=== PATIENT | female | born 1990 | race Caucasian/White ===

== ENCOUNTER 2020-09-30 10:55 | Inpatient (IN) ==
[2020-09-30] MEDS ORDERED: LACTATED RINGER'S 1,000 ML IV PRN (23:10)
[2020-09-30] MEDS ORDERED: OXYTOCIN 30 UNITS/500 ML BAG IV PRN ×2 (23:10→23:43)
[2020-09-30] MEDS ORDERED: OXYTOCIN 30 UNITS/500ML NSS ONE (23:30)
[2020-09-30 23:35] LABS: Hematocrit (blood only) 26.9 % (37-47); Hemoglobin 8.5 g/dL (12.0-16.0); Mean Corpuscular Hemoglobin 24.6 pg (25-34); Mean Platelet Volume 10.3 fL (7.4-10.4); Platelet Count 232 K/uL (130-400); RDW Coefficient of Variation 14.5 % (11.5-14.5); RDW Standard Deviation 41.6 fL (36.4-46.3); Red Blood Count 3.45 M/uL (4.2-5.4); White Blood Count 19.28 K/uL (4.8-10.8)
[2020-09-30] MEDS ORDERED: BENZOCAINE 20% AER SPR 82.5 GM CAN EXT PRN (23:43)
[2020-09-30] MEDS ORDERED: oxyCODONE/ACETAMINOPHEN 5mg/325mg TAB PO PRN (23:43)
[2020-09-30] MEDS ORDERED: bisacodyL 10 MG SUPP PR PRN (23:43)
[2020-09-30] MEDS ORDERED: HYDROCORTISONE ACETATE 25 MG SUPP PR PRN (23:43)
[2020-09-30] MEDS ORDERED: DIPHTHERIA/TETANUS/PERTUSSIS 0.5 ML SYR/VIAL IM ONE (23:43)
[2020-09-30] MEDS ORDERED: SUPERCREAM 0.870% 15 GM JAR EXT PRN (23:43)
[2020-09-30 23:54] LABS: Mean Corpuscular Hgb Conc 31.6 g/dL (32-36)
--- NOTE | 2020-10-01 | Delivery Summary ---
Vaginal Delivery Summary Date of Service Patient is a 30-year-old 5 para 3-0-1-2 EDC 09/30/2020 who presented in active labor with meconium stained fluid. She was 8 cm upon arrival in labor & delivery. She rapidly progressed to full dilation and pushed effectively over intact perineum for delivery of a viable female infant. Mouth and nasopharynx were suctioned on the perineum. Moderate meconium staining of the fluid was noted. The rest of the infant was delivered easily and placed on the mother's abdomen for further attention and drying. The was vigorous and crying upon delivery. The cord was then clamped and cut after approximately 1 minute. The placenta was expressed intact with a three-vessel cord. Cord blood was obtained. bleeding was controlled with dilute Pitocin. The perineum was inspected and noted to be intact. Estimated blood loss 150 cc. Mother and infant were doing well after delivery. [facility] [place] Vaginal Delivery Charge Vaginal Delivery Codes: 46740 global code for the antepartum, delivery, and post-
[2020-10-01] MEDS: IBUPROFEN 600 MG TAB PO PRN ×5 (01:40→20:33)
[2020-10-01 06:13] LABS: Hematocrit (blood only) 25.7 % (37-47); Mean Corpuscular Hemoglobin 24.4 pg (25-34); Mean Corpuscular Hgb Conc 31.1 g/dL (32-36); Mean Corpuscular Volume 78.4 fL (80-100); Mean Platelet Volume 10.4 fL (7.4-10.4); Platelet Count 273 K/uL (130-400); RDW Coefficient of Variation 14.5 % (11.5-14.5); RDW Standard Deviation 41.5 fL (36.4-46.3); Red Blood Count 3.28 M/uL (4.2-5.4); White Blood Count 20.74 K/uL (4.8-10.8)
--- NOTE | 2020-10-01 08:20 | Obstetrical Progress Note ---
Date of Service October 01, 2020 Assessment & Plan (1) Encounter for care and examination after delivery: satisfactory exam continue current care plan Day #:: 1 Subjective Ambulation: ambulating normally Voiding: no voiding problems Passing Gas:: Yes Diet Tolerance:: regular diet Lochia:: Small Feeding Type:: breast feeding supplementing with formula Physical Exam Constitutional WD/WN, vitals as above Cardiovascular Extremities: no calf tenderness Psychiatric A+Ox3, euthymic affect Genitourinary OB Exam Abdomen: + fundal height Fundus: + firm and + relation to umbilicus (2 below) Results & Data ([facility]) Vital Signs (Past 12 Hours) Vital Signs Temp Pulse Resp BP 10/01/20 02:30 98.1 F 96 H 18 132/67 10/01/20 02:22 115 H 135/72 10/01/20 01:28 76 139/73 10/01/20 01:13 81 143/81 H 10/01/20 00:58 74 142/80 H 10/01/20 00:43 77 140/80 10/01/20 00:28 77 133/77 10/01/20 00:13 73 132/78 09/30/20 23:58 81 127/62 09/30/20 23:44 83 145/58 H 09/30/20 23:32 93 H 117/54 L 09/30/20 23:15 87 132/92 09/30/20 23:05 98.2 F 24 09/30/20 23:00 98.2 F 22
[2020-10-01] MEDS: DOCUSATE SODIUM 100 MG CAP PO SCH ×2 (08:22→20:33)
[2020-10-01] MEDS: PRENATAL VITAMIN 1 TAB PO SCH (08:22)
[2020-10-01] MEDS: FERROUS SULFATE 325 MG TAB PO SCH (08:22)
[2020-10-01] MEDS: ACETAMINOPHEN 325 MG TAB PO PRN ×2 (10:19→22:37)
[2020-10-01] MEDS ORDERED: bisacodyL 5 MG TABEC PO SCH (20:00)
[2020-10-02] MEDS: IBUPROFEN 600 MG TAB PO PRN ×3 (00:10→10:47)
--- NOTE | 2020-10-02 06:47 | Obstetrical Progress Note ---
Date of Service October 02, 2020 Assessment & Plan (1) Encounter for care and examination after delivery: - doing well - desires d/c - instructions given - f/u in 6 weeks Subjective Ambulation: ambulating normally Voiding: no voiding problems Diet Tolerance:: regular diet Physical Exam Constitutional WD/WN, vitals as above Gastrointestinal (Abdomen) Fundus firm below umbilicus Musculoskeletal No deep calf tenderness Results & Data ([facility]) Vital Signs (Past 12 Hours) Vital Signs Temp Pulse Pulse Resp BP Pulse Ox 10/01/20 23:55 97.9 F 80 18 115/70 10/01/20 20:00 97.3 F L 76 16 112/68 98
[2020-10-02 07:11] LABS: Hematocrit (blood only) 25.9 % (37-47); Hemoglobin 8.1 g/dL (12.0-16.0)
[2020-10-02] MEDS: FERROUS SULFATE 325 MG TAB PO SCH (07:34)
[2020-10-02] MEDS: PRENATAL VITAMIN 1 TAB PO SCH (07:34)
[2020-10-02] MEDS: DOCUSATE SODIUM 100 MG CAP PO SCH (07:34)
== END 2020-10-02 11:10 | disposition home or self-care (01) | DRG 807 ==
LOC: OPB 10:55 → 4S1 10:55 → 4S2 10-01 02:52

== ENCOUNTER 2021-05-26 22:05 | Observation (INO) ==
[2021-05-27] MEDS ORDERED: ONDANSETRON INJ 2 MG/ML 2 ML VIAL IV STA (03:07)
[2021-05-27] MEDS ORDERED: SODIUM CHLORIDE 0.9% 1000ML 1,000 ML IV SCH (03:15)
[2021-05-27 03:28] LABS: Basophils # (auto) 0.01 K/uL (0-0.2); Basophils % (auto) 0.2 %; Hematocrit (blood only) 41.7 % (37-47); Hemoglobin 13.8 g/dL (12.0-16.0); Lymphocytes # (auto) 1.38 K/uL (1.2-3.4); Lymphocytes % (auto) 31.1 %; Mean Corpuscular Hemoglobin 26.4 pg (25-34); Mean Corpuscular Hgb Conc 33.1 g/dL (32-36); Mean Corpuscular Volume 79.9 fL (80-100); Mean Platelet Volume 10.9 fL (7.4-10.4); Monocytes # (auto) 0.33 K/uL (0.11-0.59); Monocytes % (auto) 7.4 %; Neutrophils # (auto) 2.32 K/uL (1.4-6.5); Neutrophils % (auto) 52.3 %; Platelet Count 254 K/uL (130-400); RDW Coefficient of Variation 13.5 % (11.5-14.5); RDW Standard Deviation 39.3 fL (36.4-46.3); Red Blood Count 5.22 M/uL (4.2-5.4); White Blood Count 4.44 K/uL (4.8-10.8)
[2021-05-27 03:45] LABS: Albumin Level 4.9 gm/dl (3.4-5.0); BUN Creatinine Ratio 20.9 (10-20); Calcium 9.6 mg/dl (8.5-10.1); Creatinine Clr Calc Pharmacy 101.4 ml/min; Est GFR (African American) 137.6 ml/min; Est GFR (Non-African American) 118.7 ml/min; Potassium 3.5 mmol/L (3.5-5.1)
[2021-05-27 03:48] LABS: Albumin Globulin Ratio 1.3 (0.9-2); Bilirubin,Total 0.8 mg/dl (0.2-1); Globulin 3.9 gm/dl (2.5-4.0); Total Protein 8.8 gm/dl (6.4-8.2)
[2021-05-27 03:50] LABS: Pregnancy Test, Serum Negative (Negative)
[2021-05-27] MEDS ORDERED: OPTIRAY 320 100ml IV ONE (05:47)
--- NOTE | 2021-05-27 06:19 | Emergency Department Note ---
History of Present Illness General Chief complaint: Constipation Stated complaint: CONSTIPATION Time Seen by Provider: 05/26/21 23:46 History of Present Illness Maximum Pain Intensity: 8 This is a 31-year-old female presenting to the emergency department for evaluation of constipation for the past 3 weeks. She states that she has not had a bowel movement of any type during this interval. The patient began having increasing left-sided abdominal pain worsening the past 1 to 2 days. The patient states that she drank magnesium citrate and attempted to fleets enemas at home without relief. She has not had fevers or chills. No chest pain, chest tightness, or shortness of breath. She feels like she is urinating as normal. She does not report any back pain or injury. The patient is on Suboxone. She rates her discomfort an 8/10, dull, nonradiating. Home Medications Medication Instructions Recorded Confirmed Type citalopram 20 mg tablet (Celexa) 20 mg PO QPM 05/09/21 05/26/21 History buprenorphine HCl 8 mg sublingual mg SUBLINGUAL 05/27/21 History tablet Allergies Allergy/AdvReac Type Severity Reaction Status Date / Time No Known Allergies Verified 05/26/21 23:52 Past Med/Surg History Medical History Anxiety and depression Surgical History H/O LEEP 2006 History of cholecystectomy 2007 History of tonsillectomy 1999 Family History Son Brain cancer Denies family history of Ovarian cancer Prostate cancer Myocardial infarction Breast cancer Colorectal cancer Social History Smoking Status: Never smoker Second Hand Exposure: Yes (FOB smokes); Hx Alcohol Use: Yes Hx Substance Use: Yes Preferred Language: Finnish Communication Ability: Effective Visual Impairment: No Limitations Hearing Ability: Normal Oven Attendant Required: No Beliefs That Will Affect Care: None marital status: Single marital status details: Marshall Mondragon 34 Current Living Situation: Family Current Living Situation Comment: CHILDREN current occupational status: unemployed Feels Safe at Home: Yes Physical Activity Frequency: 1-2 Times per Week Assistive Devices: None Review of Systems A total of 10 systems reviewed and were otherwise negative Physical Exam Vital Signs Vital Signs - 24 hr 05/26/21 22:06 05/27/21 00:34 05/27/21 02:30 Temperature 36.6 C Temperature Source Temporal Artery Scan Pulse Rate 96 H Pulse Rate [Finger] 83 79 Respiratory Rate 18 14 16 Respiratory Depth Normal Normal Blood Pressure 125/83 Blood Pressure [Right Arm] 121/76 112/77 Blood Pressure Mean 97 Blood Pressure Mean [Right Arm] 91 88 Blood Pressure Position Sitting Blood Pressure Position [Right Arm] Pulse Oximetry 100 98 100 Oxygen Delivery Method Room Air Room Air Room Air Sepsis Recent Fever Within 48 Hours No Sepsis New/Unexplained Change in Mental Status No Sepsis Action Taken by Nursing No Action Required 05/27/21 04:00 05/27/21 06:00 Temperature Temperature Source Pulse Rate Pulse Rate [Finger] 78 84 Respiratory Rate 16 16 Respiratory Depth Normal Blood Pressure Blood Pressure [Right Arm] 116/78 140/92 Blood Pressure Mean Blood Pressure Mean [Right Arm] 90 108 Blood Pressure Position Blood Pressure Position [Right Arm] Lying Sitting Pulse Oximetry 98 98 Oxygen Delivery Method Room Air Room Air Sepsis Recent Fever Within 48 Hours Sepsis New/Unexplained Change in Mental Status Sepsis Action Taken by Nursing VITALS: Vitals are noted on the nurse's note and reviewed by myself. Vital signs stable. GENERAL: Well-developed, well-nourished, white female, who is in no acute distress and resting comfortably. Patient is cooperative with the examination. HEAD: Normocephalic atraumatic. HEART: Regular rate and rhythm without murmurs gallops or rubs. LUNGS: Clear to auscultation bilaterally without wheezes, rales or rhonchi. No retractions or accessory muscle use. ABDOMEN: Positive normal bowel sounds x 4. Soft, nontender, without masses or organomegaly. No guarding or rebound tenderness. MUSCULOSKELETAL: No muscle atrophy, erythema, or edema noted. Full range of motion in all extremities. Course Administered Medications Citalopram Hydrobromide (Citalopram 20 Mg Tab) 20 mg PO QPM CHINEDU Stop: 06/26/21 20:59 Last Admin: 05/27/21 19:53 Dose: 20 mg Documented by: [id number] Enoxaparin Sodium (Enoxaparin Inj 40 Mg/0.4 Ml Syr) 40 mg SQ Q24H CHINEDU Stop: 06/26/21 10:59 Last Admin: 05/27/21 12:48 Dose: Not Given Documented by: [id number] Lactated Ringer's (Lr) 1,000 mls @ 80 mls/hr IV .[id number] CHINEDU Stop: 06/26/21 10:39 Last Infusion: 05/27/21 20:52 Dose: 80 mls/hr Documented by: [id number] Infusion: 05/27/21 19:53 Dose: 0 mls/hr Documented by: [id number] Infusion: 05/27/21 15:02 Dose: 80 mls/hr Documented by: [id number] Infusion: 05/27/21 11:28 Dose: 0 mls/hr Documented by: [id number] Admin: 05/27/21 11:28 Dose: 80 mls/hr Documented by: [id number] Ciprofloxacin (Cipro / D5w) 400 mg in 200 mls @ 100 mls/hr IV Q12H CHINEDU Stop: 06/06/21 10:59 Last Infusion: 05/27/21 14:57 Dose: 0 mls/hr Documented by: [id number] Admin: 05/27/21 12:46 Dose: 100 mls/hr Documented by: [id number] Metronidazole (Flagyl) 500 mg in 100 mls @ 100 mls/hr IV Q8H CHINEDU Stop: 06/06/21 10:59 Last Infusion: 05/27/21 20:52 Dose: 0 mls/hr Documented by: [id number] Admin: 05/27/21 19:52 Dose: 100 mls/hr Documented by: [id number] Infusion: 05/27/21 12:45 Dose: 0 mls/hr Documented by: [id number] Admin: 05/27/21 11:26 Dose: 100 mls/hr Documented by: [id number] Polyethylene Glycol (Polyethylene (Miralax) 17 Gm Pack) 17 gm PO Q4 CHINEDU Stop: 06/26/21 11:59 Last Admin: 05/27/21 12:49 Dose: Not Given Documented by: [id number] Polyethylene Glycol/Electrolytes (Lavage Solution 4000ml) 16 dose PO 1800 CHINEDU Stop: 05/28/21 08:00 Last Admin: 05/27/21 18:13 Dose: 16 dose Documented by: [id number] Discontinued Medications Sodium Chloride (Nss 1000ml) 1,000 mls @ 999 mls/hr IV .Q1H1M CHINEDU Stop: 05/27/21 04:15 Last Infusion: 05/27/21 06:56 Dose: 0 mls/hr Documented by: [id number] Admin: 05/27/21 03:48 Dose: 999 mls/hr Documented by: [id number] Ioversol (Optiray 320 100ml) 100 ml IV ONCE ONE Stop: 05/27/21 05:48 Last Admin: 05/27/21 05:48 Dose: 93 ml Documented by: [id number] Methylnaltrexone Goodman (Methylnaltrexone Goodman 12 Mg/0.6 Ml Vial) 12 mg SQ ONE STA Stop: 05/27/21 12:10 Last Admin: 05/27/21 12:54 Dose: 12 mg Documented by: [id number] Ondansetron HCl (Ondansetron Inj 2 Mg/Ml 2 Ml Vial) 4 mg IV NOW STA Stop: 05/27/21 03:08 Last Admin: 05/27/21 03:48 Dose: 4 mg Documented by: [id number] Polyethylene Glycol (Polyethylene (Miralax) 17 Gm Pack) 17 gm PO NOW STA Stop: 05/27/21 07:28 Last Admin: 05/27/21 09:28 Dose: 17 gm Documented by: [id number] Medical Decision Making Differential Diagnosis Differential diagnosis: Etiologies such as biliary colic, cholecystitis, hepatitis, pancreatitis, cardiac disease, pancreatitis, gastritis, peptic ulcer disease, appendicitis, cystitis, diverticulitis, mesenteric ischemia, inflammatory bowel disease, ileus, bowel obstruction, testicular/adnexal torsion, aortic pathology, shingles, as well as others were considered Laboratory Data Result diagrams: 05/27/21 03:19 05/27/21 03:19 Lab Results 05/27/21 05/27/21 05/27/21 Range/Units 03:19 03:19 03:19 WBC 4.44 L (4.8-10.8) K/uL RBC 5.22 (4.2-5.4) M/uL Hgb 13.8 (12.0-16.0) g/dL Hct 41.7 (37-47) % MCV 79.9 L (80-100) fL MCH 26.4 (25-34) pg MCHC 33.1 (32-36) g/dL RDW Std Deviation 39.3 (36.4-46.3) fL RDW Coeff of Yonatan 13.5 (11.5-14.5) % Plt Count 254 (130-400) K/uL MPV 10.9 H (7.4-10.4) fL Immature Gran % (Auto) 0.0 % Neut % (Auto) 52.3 % Lymph % (Auto) 31.1 % [place] % (Auto) 7.4 % Eos % (Auto) 9.0 % Baso % (Auto) 0.2 % Neut # (Auto) 2.32 (1.4-6.5) K/uL Lymph # (Auto) 1.38 (1.2-3.4) K/uL [place] # (Auto) 0.33 (0.11-0.59) K/uL Eos # (Auto) 0.40 (0-0.5) K/uL Baso # (Auto) 0.01 (0-0.2) K/uL Immature Gran # (Auto) 0.00 (0.00-0.02) K/uL Sodium 137 (136-145) mmol/L Potassium 3.5 (3.5-5.1) mmol/L Chloride 102 (98-107) mmol/L Carbon Dioxide 34 H (21-32) mmol/L Anion Gap 1.0 L (3-11) BUN 13 (7-18) mg/dl Creatinine 0.63 (0.6-1.2) mg/dl Est Cr Clr Drug Dosing 101.4 ml/min Est GFR ( Amer) 137.6 ml/min Est GFR (Non-Af Amer) 118.7 ml/min BUN/Creatinine Ratio 20.9 H (10-20) Glucose 92 (70-99) mg/dl Calcium 9.6 (8.5-10.1) mg/dl Total Bilirubin 0.8 (0.2-1) mg/dl AST 234 H (15-37) U/L ALT 141 H (12-78) U/L Alkaline Phosphatase 112 (45-117) U/L Total Protein 8.8 H (6.4-8.2) gm/dl Albumin 4.9 (3.4-5.0) gm/dl Globulin 3.9 (2.5-4.0) gm/dl Albumin/Globulin Ratio 1.3 (0.9-2) HCG, Qual Negative (Negative) COVID-19 Eval Order SARS-CoV-2 (PCR) (Negative) 05/27/21 05/27/21 Range/Units 07:29 07:29 WBC (4.8-10.8) K/uL RBC (4.2-5.4) M/uL Hgb (12.0-16.0) g/dL Hct (37-47) % MCV (80-100) fL MCH (25-34) pg MCHC (32-36) g/dL RDW Std Deviation (36.4-46.3) fL RDW Coeff of Yonatan (11.5-14.5) % Plt Count (130-400) K/uL MPV (7.4-10.4) fL Immature Gran % (Auto) % Neut % (Auto) % Lymph % (Auto) % [place] % (Auto) % Eos % (Auto) % Baso % (Auto) % Neut # (Auto) (1.4-6.5) K/uL Lymph # (Auto) (1.2-3.4) K/uL [place] # (Auto) (0.11-0.59) K/uL Eos # (Auto) (0-0.5) K/uL Baso # (Auto) (0-0.2) K/uL Immature Gran # (Auto) (0.00-0.02) K/uL Sodium (136-145) mmol/L Potassium (3.5-5.1) mmol/L Chloride (98-107) mmol/L Carbon Dioxide (21-32) mmol/L Anion Gap (3-11) BUN (7-18) mg/dl Creatinine (0.6-1.2) mg/dl Est Cr Clr Drug Dosing ml/min Est GFR ( Amer) ml/min Est GFR (Non-Af Amer) ml/min BUN/Creatinine Ratio (10-20) Glucose (70-99) mg/dl Calcium (8.5-10.1) mg/dl Total Bilirubin (0.2-1) mg/dl AST (15-37) U/L ALT (12-78) U/L Alkaline Phosphatase (45-117) U/L Total Protein (6.4-8.2) gm/dl Albumin (3.4-5.0) gm/dl Globulin (2.5-4.0) gm/dl Albumin/Globulin Ratio (0.9-2) HCG, Qual (Negative) COVID-19 Eval Order Covid19 at [facility] SARS-CoV-2 (PCR) NEGATIVE (Negative) Imaging Data Radiologist's Impression: KUB X-Ray 05/26/21 23:55 KUB CLINICAL HISTORY: Constipation. FINDINGS: 2 AP supine abdominal radiographs are compared to study dated 11/23/2019. There is a nonobstructed abdominal bowel gas pattern. Moderate fecal retention is noted throughout the colon. No evidence of intraperitoneal free air is seen on these supine images. There are no abnormal abdominal calcifications. Cholecystectomy clips are seen in the right upper quadrant. A phlebolith is noted in the pelvis. The bony structures appear intact. The lung bases are clear as imaged. IMPRESSION: Moderate colonic fecal retention. Electronically signed by: Naveen Cevallos M.D. 05/27/2021 8:15 AM KUB X-Ray 05/27/21 02:53 KUB CLINICAL HISTORY: Constipation. Status post enema. FINDINGS: 2 AP supine abdominal radiographs are compared to study performed earlier the same day 05/27/2021. There is a nonobstructed abdominal bowel gas pattern. There is moderate colonic fecal retention, greatest involving the left colon. There is mild gaseous distention of the upstream colon. No evidence of intraperitoneal free air is seen on these supine images. There are no abnormal abdominal calcifications. Cholecystectomy clips are seen in the right upper quadrant. A phlebolith is noted in the pelvis. The bony structures appear intact. The lung bases are clear as imaged. IMPRESSION: Moderate colonic fecal retention. No significant change from today's earlier examination. Electronically signed by: Naveen Cevallos M.D. 05/27/2021 8:16 AM Abdomen/Pelvis CT 05/27/21 03:07 CT SCAN OF THE ABDOMEN AND PELVIS WITH IV CONTRAST CLINICAL HISTORY: Generalized abdominal pain. Constipation. COMPARISON STUDY: Abdominal radiographs dated 05/27/2021. TECHNIQUE: Following the IV administration of 93 cc of Optiray 320, CT scan of the abdomen and pelvis is performed from the lung bases to the proximal femora. Images are reviewed in the axial, sagittal, and coronal planes. IV contrast was administered without complication. Oral contrast was utilized. A dose lowering technique was utilized adhering to the principles of ALARA. CT DOSE: 268.24 mGy.cm FINDINGS: Lung bases: The heart is normal in size and without pericardial effusion. The lung bases are clear. Liver: The contrast-enhanced liver is normal in size, contour, and attenuation. There is mild central intrahepatic biliary ductal dilatation. The hepatic veins and portal veins are patent. Mild periportal edema is noted. Gallbladder: Surgically absent noting clips in the gallbladder fossa. Spleen: Normal in size and attenuation. Pancreas: Unremarkable. Adrenal glands: Unremarkable. Kidneys: The contrast enhanced kidneys are normal in size and without hydronephrosis. The kidneys enhance symmetrically. Abdominal vasculature: The abdominal aorta is normal in course and caliber. Bowel: There is severe constipation, greatest involving the descending colon which is distended with stool and measures up to 6 cm in diameter. There is wall thickening and edema with mucosal hyperemia seen involving the left colon with associated pericolonic inflammation and fluid. The rectosigmoid is relatively decompressed. The small bowel loops are normal in caliber. Enteric contrast reaches the distal small bowel. The appendix is not clearly visualized. Peritoneum: There is a small volume of free fluid in the pelvis. No intraperitoneal free air is identified. There is a small fat-containing umbilical hernia. Lymphadenopathy: None. Pelvic viscera: The bladder, uterus, and adnexa are normal as visualized. Skeletal structures: No lytic or blastic lesions are seen. IMPRESSION: 1. Severe constipation. 2. There is evidence of a nonspecific colitis as detailed above, greatest involving the left colon. This may represent stercoral colitis and clinical correlation will be essential. 3. The rectosigmoid colon is relatively decompressed. Stricture or obstructing mass lesion is considered unlikely in this age group. If clinically warranted, colonoscopy could be considered for further assessment of the underlying colon. 4. A small volume of free fluid is likely reactive. ACT 112: Negative or not required by law. Electronically signed by: Naveen Cevallos M.D. 05/27/2021 7:11 AM MDM Narrative Physical exam and history were performed. Nursing notes, EMR, and Medication List were personally reviewed. Patient appears to have constipation symptoms by history. She does not appear significantly distended on examination. She is on outpatient opioids which may be contributing to her symptoms. KUB was performed and reviewed by myself and radiology showing constipation. I discussed options of care with the patient a nd she is willing to undergo enema. Milk and molasses enema was performed by nursing without significant results. We did attempt a second enema with soapsuds, and this also did not produce results. I did repeat KUB which does not show any significant change in the patient's stool burden. Because of this IV access was established and labs were obtained. She was sent to CT scan with IV and oral contrast. The patient's blood work is as above and was reviewed. She does not have a significantly elevated white blood cell count, gross anemia, bandemia, or significant electrolyte imbalance. Transaminases are slightly elevated of unknown etiology. CT scan was reviewed and does show severe constipation as well as concern for stercoral colitis. The case was discussed with the on-call legislative advocate, Dr. Michael, who recommended starting MiraLAX and admitting the patient. I did speak with him out any hospitalist team who agreed to evaluate the patient here in the ER. Please see their dictation for further patient course, plan, disposition. The chart was completed utilizing [employer] Speech Voice Recognition Software. Grammatical errors, random word insertions, pronoun errors, and incomplete sentences are an occasional consequence of this system due to software limitations, ambient noise, and hardware issues. Any formal questions or concerns about the content, text, or information contained within the body of this dictation should be directly addressed to the provider for clarification. . Impression & Plan Stercoral colitis, Constipation, Abnormal CT scan, colon Discharge Plan Visit Data Chief Complaint: Constipation Stated Complaint: CONSTIPATION ED Provider: Cecilio Madrid ED Midlevel Provider: Shane Benjamin Discharge Problem: Stercoral colitis, Constipation, Abnormal CT scan, colon Patient Disposition: Admitted As Inpatient Discharge Instructions Interventions: ED Discharge Assessment Last Done: 05/27/21 09:45
--- NOTE | 2021-05-27 07:12 | CT Scan Report ---
CT SCAN OF THE ABDOMEN AND PELVIS WITH IV CONTRAST CLINICAL HISTORY: Generalized abdominal pain. Constipation. COMPARISON STUDY: Abdominal radiographs dated 05/27/2021. TECHNIQUE: Following the IV administration of 93 cc of Optiray 320, CT scan of the abdomen and pelvi s is performed from the lung bases to the proximal femora. Images are reviewed in the axial, sagittal , and coronal planes. IV contrast was administered without complication. Oral contrast was utilized. A dose lowering technique was utilized adhering to the principles of ALARA. CT DOSE: 268.24 mGy.cm FINDINGS: Lung bases: The heart is normal in size and without pericardial effusion. The lung bases are clear. Liver: The contrast-enhanced liver is normal in size, contour, and attenuation. There is mild central intrahepatic biliary ductal dilatation. The hepatic veins and portal veins are patent. Mild periport al edema is noted. Gallbladder: Surgically absent noting clips in the gallbladder fossa. Spleen: Normal in size and attenuation. Pancreas: Unremarkable. Adrenal glands: Unremarkable. Kidneys: The contrast enhanced kidneys are normal in size and without hydronephrosis. The kidneys enh ance symmetrically. Abdominal vasculature: The abdominal aorta is normal in course and caliber. Bowel: There is severe constipation, greatest involving the descending colon which is distended with stool and measures up to 6 cm in diameter. There is wall thickening and edema with mucosal hyperemia seen involving the left colon with associated pericolonic inflammation and fluid. The rectosigmoid is relatively decompressed. The small bowel loops are normal in caliber. Enteric contrast reaches the d istal small bowel. The appendix is not clearly visualized. Peritoneum: There is a small volume of free fluid in the pelvis. No intraperitoneal free air is ident ified. There is a small fat-containing umbilical hernia. Lymphadenopathy: None. Pelvic viscera: The bladder, uterus, and adnexa are normal as visualized. Skeletal structures: No lytic or blastic lesions are seen. IMPRESSION: 1. Severe constipation. 2. There is evidence of a nonspecific colitis as detailed above, greatest involving the left colon. T his may represent stercoral colitis and clinical correlation will be essential. 3. The rectosigmoid colon is relatively decompressed. Stricture or obstructing mass lesion is conside red unlikely in this age group. If clinically warranted, colonoscopy could be considered for further assessment of the underlying colon. 4. A small volume of free fluid is likely reactive. ACT 112: Negative or not required by law. Electronically signed by: Naveen Cevallos M.D. 05/27/2021 7:11 AM
[2021-05-27] MEDS ORDERED: POLYETHYLENE (MIRALAX) 17 GM PACK PO STA (07:27)
--- NOTE | 2021-05-27 08:16 | XRay Report ---
KUB CLINICAL HISTORY: Constipation. FINDINGS: 2 AP supine abdominal radiographs are compared to study dated 11/23/2019. There is a nonobst ructed abdominal bowel gas pattern. Moderate fecal retention is noted throughout the colon. No eviden ce of intraperitoneal free air is seen on these supine images. There are no abnormal abdominal calcif ications. Cholecystectomy clips are seen in the right upper quadrant. A phlebolith is noted in the pe lvis. The bony structures appear intact. The lung bases are clear as imaged. IMPRESSION: Moderate colonic fecal retention. Electronically signed by: Naveen Cevallos M.D. 05/27/2021 8:15 AM
--- NOTE | 2021-05-27 08:18 | XRay Report ---
KUB CLINICAL HISTORY: Constipation. Status post enema. FINDINGS: 2 AP supine abdominal radiographs are compared to study performed earlier the same day 05/27. There is a nonobstructed abdominal bowel gas pattern. There is moderate colonic fecal retentio n, greatest involving the left colon. There is mild gaseous distention of the upstream colon. No evid ence of intraperitoneal free air is seen on these supine images. There are no abnormal abdominal calc ifications. Cholecystectomy clips are seen in the right upper quadrant. A phlebolith is noted in the pelvis. The bony structures appear intact. The lung bases are clear as imaged. IMPRESSION: Moderate colonic fecal retention. No significant change from today's earlier examination. Electronically signed by: Naveen Cevallos M.D. 05/27/2021 8:16 AM
--- NOTE | 2021-05-27 09:21 | History & Physical Report ---
Date of Service May 27, 2021 Assessment & Plan (1) Constipation: Plan: 3 weeks since last BM left sided abdominal pain, nausea vomiting CT a/p shows severe constipation no response to milk molasses enema and soap suds enema start Miralax 17gm q4 until she moves bowels regular diet consult GI for recommendations, may need outpatient colonoscopy once acute issue resolved hold Suboxone in setting of constipation (2) Stercoral colitis: Plan: cipro/flagyl IV IV fluids no fever, WBC normal, monitor closely History of Present Illness Chief Complaint: I have not moved my bowels in 3 weeks Primary Care Provider: FLORES Portillo 31 yo female who is typically healthy, takes Celexa and Suboxone, presents with 3 weeks of constipation. She typically is regular, her bowels are not hard or difficult to pass. She did not think much of it but when she could not move her bowels this week she got worried. She developed some left sided abdominal pain, nausea and vomiting the past few days. Poor appetite. Does not feel too bloated. She can hear her bowels "rumbling." No other issues, no fever, no chest pain, no cough, no dyspnea, no rash. In the ED they tried milk and molassess enema and soap suds enema with no significant results, passed a little bit of liquid. CT abd/pelvis with significant constipation and stercoral colitis possible, could not rule out a stricture but would need colonoscopy once stool passed. Gave her Miralax in the ED. Allergies Allergy/AdvReac Type Severity Reaction Status Date / Time No Known Allergies Verified 05/26/21 23:52 Home Medications Medication Instructions Recorded Confirmed Type citalopram 20 mg tablet (Celexa) 20 mg PO QPM 05/09/21 05/26/21 History Past Med/Surg History Medical History Anxiety and depression Surgical History H/O LEEP 2006 History of cholecystectomy 2007 History of tonsillectomy 1999 Family History Son Brain cancer Denies family history of Ovarian cancer Prostate cancer Myocardial infarction Breast cancer Colorectal cancer Social History Smoking Status: Never smoker Second Hand Exposure: Yes (FOB smokes); Hx Alcohol Use: Yes Hx Substance Use: No Preferred Language: Korean Communication Ability: Effective Visual Impairment: No Limitations Hearing Ability: Normal Water Restoration Technician Required: No Beliefs That Will Affect Care: None marital status: Single marital status details: Marshall Mondragon 35 Current Living Situation: Family Current Living Situation Comment: CHILDREN current occupational status: unemployed Feels Safe at Home: Yes Physical Activity Frequency: 1-2 Times per Week Assistive Devices: None Review of Systems Review of Systems: All systems reviewed & are unremarkable except as noted in HPI & below Gastrointestinal: + abdominal pain (left sided), + early satiety, + nausea, + vomiting, + change in bowel habits (constipated x 3 weeks) and + constipation; no diarrhea/loose stools Physical Exam Constitutional: WD/WN, vitals as above no acute distress Eyes: PERRL, conjunctivae normal, anicteric sclerae ENMT: external ear and nose normal, oropharynx normal Neck: trachea midline, no thyromegaly Respiratory: normal respiratory effort, lungs clear to auscultation Cardiovascular: RRR, no murmur, no edema Gastrointestinal (Abdomen): Inspection/Auscultation: abdomen normal to inspection and normal bowel sounds; abdomen not distended Percussion/Palpation: + abdomen tender (left side), abdomen soft and + dullness to percussion (left sided) Musculoskeletal: no cyanosis or clubbing, extremities motor strength 5/5 Skin: no rashes, warm and dry Neurologic: patellar DTR's 2+ bilat, sensation intact and PERRL, EOMI, accommodation nl, no face palsy, no dysarthria Psychiatric: A+Ox3, euthymic affect Lymphatic: no cervical or axillary lymphadenopathy Results & Data Results & Data ([facility]) Vital Signs (Past 12 Hours) Vital Signs Temp Pulse Pulse Resp BP BP Pulse Ox 05/27/21 08:00 87 18 138/90 98 05/27/21 06:00 84 16 140/92 98 05/27/21 04:00 78 16 116/78 98 05/27/21 02:30 79 16 112/77 100 05/27/21 00:34 83 14 121/76 98 05/26/21 22:06 36.6 C 96 H 18 125/83 100 Laboratory Results Laboratory Results - last 24 hr 05/27/21 05/27/21 05/27/21 03:19 03:19 03:19 WBC 4.44 L RBC 5.22 Hgb 13.8 Hct 41.7 MCV 79.9 L MCH 26.4 MCHC 33.1 RDW Std Deviation 39.3 RDW Coeff of Yonatan 13.5 Plt Count 254 MPV 10.9 H Immature Gran % (Auto) 0.0 Neut % (Auto) 52.3 Lymph % (Auto) 31.1 Freestone % (Auto) 7.4 Eos % (Auto) 9.0 Baso % (Auto) 0.2 Neut # (Auto) 2.32 Lymph # (Auto) 1.38 Freestone # (Auto) 0.33 Eos # (Auto) 0.40 Baso # (Auto) 0.01 Immature Gran # (Auto) 0.00 Sodium 137 Potassium 3.5 Chloride 102 Carbon Dioxide 34 H Anion Gap 1.0 L BUN 13 Creatinine 0.63 Est Cr Clr Drug Dosing 101.4 Est GFR ( Amer) 137.6 Est GFR (Non-Af Amer) 118.7 BUN/Creatinine Ratio 20.9 H Glucose 92 Calcium 9.6 Total Bilirubin 0.8 AST 234 H ALT 141 H Alkaline Phosphatase 112 Total Protein 8.8 H Albumin 4.9 Globulin 3.9 Albumin/Globulin Ratio 1.3 HCG, Qual Negative COVID-19 Eval Order SARS-CoV-2 (PCR) 05/27/21 05/27/21 07:29 07:29 WBC RBC Hgb Hct MCV MCH MCHC RDW Std Deviation RDW Coeff of Yonatan Plt Count MPV Immature Gran % (Auto) Neut % (Auto) Lymph % (Auto) Freestone % (Auto) Eos % (Auto) Baso % (Auto) Neut # (Auto) Lymph # (Auto) Freestone # (Auto) Eos # (Auto) Baso # (Auto) Immature Gran # (Auto) Sodium Potassium Chloride Carbon Dioxide Anion Gap BUN Creatinine Est Cr Clr Drug Dosing Est GFR ( Amer) Est GFR (Non-Af Amer) BUN/Creatinine Ratio Glucose Calcium Total Bilirubin AST ALT Alkaline Phosphatase Total Protein Albumin Globulin Albumin/Globulin Ratio HCG, Qual COVID-19 Eval [address] Covid[address] [facility] SARS-CoV-2 (PCR) NEGATIVE Diagnostic Findings CT abd/pelvis IMPRESSION: 1. Severe constipation. 2. There is evidence of a nonspecific colitis as detailed above, greatest involving the left colon. This may represent stercoral colitis and clinical correlation will be essential. 3. The rectosigmoid colon is relatively decompressed. Stricture or obstructing mass lesion is considered unlikely in this age group. If clinically warranted, colonoscopy could be considered for further assessment of the underlying colon. 4. A small volume of free fluid is likely reactive. Code Status & VTE Plan VTE Prophylaxis Plan VTE Prophylaxis will be ordered: Yes PG Care Time/CCT Total # of Minutes Spent Total Time Spent with Patient: Total time spent is greater than 50% in coordination of care (as documented) at patient's floor/unit and/or counseling patient: Coding Level of Care Code INT OBSERVATION CARE 50M LVL 2 Diagnoses Constipation K59.00 Stercoral colitis K52.89
[2021-05-27] MEDS ORDERED: ONDANSETRON INJ 2 MG/ML 2 ML VIAL IV PRN (10:40)
[2021-05-27] MEDS: metroNIDAZOLE 500 MG/100 ML BAG IV SCH ×2 (11:26→19:52)
[2021-05-27] MEDS: LACTATED RINGER'S 1,000 ML IV SCH (11:28)
[2021-05-27] MEDS ORDERED: METHYLNALTREXONE BROMIDE 12 MG/0.6 ML VIAL SQ STA (12:09)
--- NOTE | 2021-05-27 12:15 | Gastrointestinal Consultation ---
Date of Consultation May 27, 2021 Assessment & Plan (1) Constipation: (2) Stercoral colitis: (3) Abnormal CT scan, colon: DDX: infection vs stercoral colitis vs IBD vs opioid-induced constipation vs mass vs other. * Clear liquid diet. * 12 mg Relistor SQ x1 dose now. * GoLytely bowel preparation this evening. * NPO x meds post midnight. * Colonoscopy tomorrow 05/28/[address] Michael. * Continue supportive care. * Further reccs pending results of testing. Thank you for allowing us to participate in the care of this patient. If you have any questions or concerns, please do not hesitate to contact us. Supervising Physician Co-Signing Physician Notes Agree with FLORES Tello as above Abd: Soft, Tender LLQ, ND, +BS Continue current therapy and supportive care Clear liquid diet Bowel prep tonight Colonoscopy tomorrow History of Present Illness Reason for Consultation: Severe constipation Requesting Physician: Dr. Arroyo Attending Physician: Agapito Arroyo, History of Present Illness Patient is a very pleasant 31 y.o. female with a history of substance abuse on chronic Suboxone therapy admitted with a three week history of constipation and left-sided abdominal pain which began several days prior to arrival. She states that she typically has a very normal bowel pattern with regular bowel frequency and consistency. No precipitating events to the change in bowel habits. Over the past few weeks, she reports that she has been losing weight and unable to eat due to loss of appetite and nausea. No vomiting. +blood in stool although felt related to hemorrhoids. +Bloating. She endorses occasional NSAID use. Family history is significant for IBS but not inflammatory bowel disease or GI malignancy. Upon admission, she did undergo a CT scan which demonstrated severe constipation with colonic wall dilation measuring up to 6 cm. There were also nonspecific inflammatory changes in the descending colon suggestive of possible stercoral colitis and possible stricture vs mass, although felt less likely given age. GI has been consulted in this regard. She remains hemodynamically stable. She did have an unsuccessful milk/molasses enema in the ER and has consumed one dose of MiraLAX and 1 dose of magnesium citrate. She states she feels weak and dizzy but has not had any fecal output at this time. Allergies Allergy/AdvReac Type Severity Reaction Status Date / Time No Known Allergies Verified 05/26/21 23:52 Home Medications Medication Instructions Recorded Confirmed Type citalopram 20 mg tablet (Celexa) 20 mg PO QPM 05/09/21 05/26/21 History buprenorphine HCl 8 mg sublingual mg SUBLINGUAL 05/27/21 History tablet Patient History Medical History Anxiety and depression Surgical History H/O LEEP 2006 History of cholecystectomy 2007 History of tonsillectomy 1999 Family History Son Brain cancer Denies family history of Ovarian cancer Prostate cancer Myocardial infarction Breast cancer Colorectal cancer Social History Smoking Status: Never smoker Second Hand Exposure: Yes (FOB smokes); Hx Alcohol Use: Yes Hx Substance Use: Yes Preferred Language: Tajik Communication Ability: Effective Visual Impairment: No Limitations Hearing Ability: Normal Cutting Machine Fixer Required: No Beliefs That Will Affect Care: None marital status: Single marital status details: Marshall Mondragon 35 Current Living Situation: Family Current Living Situation Comment: CHILDREN current occupational status: unemployed Feels Safe at Home: Yes Physical Activity Frequency: 1-2 Times per Week Assistive Devices: None Review of Systems Review of Systems: A 13 point review of systems was negative other than pertinent positives and negatives as per the HPI. Physical Exam Constitutional: WD/WN, vitals as above Eyes: EOM intact bilaterally Neck: normal appearance Respiratory: normal respiratory effort, lungs clear to auscultation Cardiovascular: Rate/Rhythm: regular rate and regular rhythm Heart Sounds: no gallop and no murmur Gastrointestinal (Abdomen): Inspection/Auscultation: + abdomen distended and + hyperactive bowel sounds (LLQ, decreased RUQ and RLQ) Percussion/Palpation: + abdomen tender (LLQ) and abdomen soft; no guarding and abdomen not rigid Musculoskeletal: Extremities: no cyanosis no lower extremity edema Skin: no rashes, warm and dry Neurologic: moves all extremities Psychiatric: A+Ox3, euthymic affect Results & [facility] ([facility]) Vital Signs (Past 12 Hours) Vital Signs Temp Pulse Pulse Resp BP Pulse Ox 05/27/21 09:55 36.5 C 79 21 118/85 98 05/27/21 08:00 87 18 138/90 98 05/27/21 06:00 84 16 140/92 98 05/27/21 04:00 78 16 116/78 98 05/27/21 02:30 79 16 112/77 100 05/27/21 00:34 83 14 121/76 98 Laboratory Results Abnormal lab results 05/27/21 05/27/21 Range/Units 03:19 03:19 WBC 4.44 L (4.8-10.8) K/uL MCV 79.9 L (80-100) fL MPV 10.9 H (7.4-10.4) fL Carbon Dioxide 34 H (21-32) mmol/L Anion Gap 1.0 L (3-11) BUN/Creatinine Ratio 20.9 H (10-20) AST 234 H (15-37) U/L ALT 141 H (12-78) U/L Total Protein 8.8 H (6.4-8.2) gm/dl PG Care Time/CCT Total # of Minutes Spent Total Time Spent with Patient: Total time spent is greater than 50% in coordination of care (as documented) at patient's floor/unit and/or counseling patient: Coding Level of Care Code 64618 Initial Inpt Care Lvl 3 Diagnoses Constipation K59.00 Stercoral colitis K52.[address] scan, colon R93.3
[2021-05-27] MEDS: CIPROFLOXACIN / D5W 400 MG/200 ML BAG IV SCH ×2 (12:46→22:49)
[2021-05-27] MEDS: ENOXAPARIN INJ 40 MG/0.4 ML SYR SQ SCH (12:48)
[2021-05-27] MEDS: POLYETHYLENE (MIRALAX) 17 GM PACK PO SCH (12:49)
[2021-05-27] MEDS ORDERED: LAVAGE SOLUTION 4000ML PO SCH (18:00)
[2021-05-27] MEDS: CITALOPRAM 20 MG TAB PO SCH (19:53)
[2021-05-28] MEDS: LACTATED RINGER'S 1,000 ML IV SCH ×2 (03:32→23:06)
[2021-05-28] MEDS: metroNIDAZOLE 500 MG/100 ML BAG IV SCH ×3 (03:33→19:23)
--- NOTE | 2021-05-28 09:31 | History & Physical Bridge Note ---
Date of Service May 28, 2021 History & Physical Bridge Note I have examined the patient, reviewed the History & Physical and in the interval since the performance of the History & Physical I have noted the following changes of clinical significance: bloating has improved but no improvement in abdominal pain with bowel preparation. She states she is having clear liquid output. PE: A&Ox3. Lungs CTA bilaterally. RRR without M/R/G. Abdomen soft, normal bowel sounds. Tender LLQ. A/P: Severe constipation with abnormal CT imaging suggestive of stercoral colitis and possible stenosis vs mass. * NPO for now. * Colonoscopy with Dr. Michael today. * Further reccs. pending results of testing. Supervising Physician Co-Signing Physician Notes Agree with FLORES Tello as above Abd: Soft, tender LLQ, ND Bowel prep completed Colonoscopy now
[2021-05-28] MEDS: CIPROFLOXACIN / D5W 400 MG/200 ML BAG IV SCH ×2 (11:25→23:14)
[2021-05-28] MEDS: ENOXAPARIN INJ 40 MG/0.4 ML SYR SQ SCH (11:26)
--- NOTE | 2021-05-28 15:41 | Anesthesiology Consultation ---
Date of Service May 28, 2021 Assessment & Plan (1) Encounter for pre-operative examination: Chart Review Chart Review: Acceptable Risk for Surgery History Surgery Operation Date: 05/28/21 16:30 Proposed Procedures p Colonoscopy Dr. Alec Michael, DO Height/Weight Height: 5 ft 2 in Weight: 53.3 kg Allergies Allergy/AdvReac Type Severity Reaction Status Date / Time No Known Allergies Verified 05/26/21 23:52 Medications Home Medications Medication Instructions Recorded Confirmed Last Taken citalopram 20 mg tablet (Celexa) 20 mg PO QPM 05/09/21 05/26/21 05/26/21 buprenorphine HCl 8 mg sublingual mg SUBLINGUAL 05/27/21 05/26/21 tablet 4 mg Active Medications Generic Name Dose Route Start Last Admin Trade Name Freq PRN Reason Stop Dose Admin Citalopram Hydrobromide 20 mg 05/27/21 21:00 05/27/21 19:53 Citalopram 20 Mg Tab PO 06/26/21 20:59 20 mg QPM CHINEDU Administration Enoxaparin Sodium 40 mg 05/27/21 11:00 05/28/21 11:26 Enoxaparin Inj 40 Mg/0.4 Ml Syr SQ 06/26/21 10:59 Not Given Q24H CHINEDU Lactated Ringer's 1,000 mls @ 80 mls/hr 05/27/21 10:40 05/28/21 14:18 Lr IV 06/26/21 10:39 80 mls/hr .[id number] [facility] Infusion Ciprofloxacin 400 mg in 200 mls @ 100 mls/hr 05/27/21 11:00 05/28/21 13:25 Cipro / D5w IV 06/06/21 10:59 Infused Q12H [facility] Infusion Metronidazole 500 mg in 100 mls @ 100 mls/hr 05/27/21 11:00 05/28/21 11:20 Flagyl IV 06/06/21 10:59 Infused Q8H [facility] Infusion Polyethylene Glycol 17 gm 05/27/21 12:00 05/27/21 12:49 Polyethylene (Miralax) 17 Gm Pack PO 06/26/21 11:59 Not Given Q4 CHINEDU Past Medical History Medical History Anxiety and depression Past Family History Family History Son Brain cancer Denies family history of Ovarian cancer Prostate cancer Myocardial infarction Breast cancer Colorectal cancer Past Surgical History Surgical History H/O LEEP 2006 History of cholecystectomy 2007 History of tonsillectomy 1999 Social History Smoking Status: Never smoker Hx Alcohol Use: Yes alcohol intake frequency: holidays/special occasions only Hx Substance Use: Yes substance use type: does not use, opiates, painkillers and prescription drug Physical Exam Vital Signs Last Vital Signs Temp 36.6 C 05/28/21 11:44 Pulse 82 05/28/21 11:44 Resp 16 05/28/21 11:44 BP 112/71 05/28/21 11:44 Pulse Ox 96 05/28/21 11:44 Testing Laboratory Results 05/27/21 03:19 05/27/21 03:19
[2021-05-28] MEDS ORDERED: PROPOFOL IV EMULSION 10 MG/ML 20 ML VIAL IV ONE (17:52)
--- NOTE | 2021-05-28 18:33 | GI REPORT ---
Patient Name: Sully Arroyo Procedure Date: 05/28/2021 4:36 PM Date of : 1990 Admit Type: Inpatient Age: 31 Gender: Female Attending MD: Bridger Michael DO Procedure: Colonoscopy Providers: Bridger Michael DO Referring MD: Agapito Arroyo Indications: Abnormal CT of the GI tract, Constipation Medicines: Monitored Anesthesia Care Complications: No immediate complications. Estimated Blood Loss: Estimated blood loss: none. Procedure: Pre-Anesthesia Assessment: - Prior to the procedure, a History and Physical was performed, and patient medications and allergies were reviewed. The patient's tolerance of previous anesthesia was also reviewed. The risks and benefits of the procedure and the sedation options and risks were discussed with the patient. All questions were answered, and informed consent was obtained. Prior Anticoagulants: The patient has taken no previous anticoagulant or antiplatelet agents. ASA Grade Assessment: II - A patient with mild systemic disease. After reviewing the risks and benefits, the patient was deemed in satisfactory condition to undergo the procedure. After I obtained informed consent, the scope was passed under direct vision. Throughout the procedure, the patient's blood pressure, pulse, and oxygen saturations were monitored continuously. The Colonoscope was introduced through the anus with the intention of advancing to the ileum. The scope was advanced to the ascending colon before the procedure was aborted. Medications were given. The colonoscopy was technically difficult and complex due to an impacted stool ball, inadequate bowel prep and a redundant colon. Successful completion of the procedure was aided by using manual pressure, applying abdominal pressure, lavage and performing the maneuvers documented (below) in this report. The patient tolerated the procedure well. The quality of the bowel preparation was poor. No anatomical landmarks were photographed. Findings: The perianal and digital rectal examinations were normal. A large ball of impacted stool was found in the proximal sigmoid colon, extending into the distal descending colon, interfering with visualization. Lavage of the area was performed using copious amounts of normal saline, a large snare, regular snare, "duck-billed" snare, and rat tooth forceps were used to break apart the stool ball resulting in incomplete clearance with continued poor visualization. Greater than 1 hour was needed to break apart the stool ball allowing for inspection of the more proximal colon. A localized area of moderately congested, friable (with spontaneous bleeding), inflamed and [id number]-ejymvifub mucosa was found in the sigmoid colon and in the descending colon at the site of the impacted stool ball. Impression: - Preparation of the colon was poor. - Impacted stool ball in the proximal sigmoid colon. - No specimens collected. Recommendation: - Return patient to [facility] for ongoing care. - Clear liquid diet. - Take Miralax 3 capfuls (119 grams) in 64 oz of Gatorade tonight. - Start Miralax 17 g in 8 oz glass of water twice daily thereafter. - Repeat colonoscopy in 8 weeks. Bridger Funes Case, DO 05/28/2021 6:33:33 PM This report has been signed electronically. Note Initiated On: 05/28/2021 4:36 PM Number of Addenda: 0 I attest to the content of the Intraoperative Record and orders documented therein, exceptions below {[id number]}
--- NOTE | 2021-05-28 18:33 | Anesthesiology Progress Note ---
Date of Service May 28, 2021 Anesthesia Post Procedure Vital Signs Vital Signs: Temp Pulse Pulse Resp BP Pulse Ox 05/28/21 18:20 78 16 138/91 100 05/28/21 15:39 36.9 C 88 16 111/72 99 05/28/21 15:22 36.7 C 78 16 135/87 97 05/28/21 11:44 36.6 C 82 16 112/71 96 05/28/21 08:00 36.7 C 79 18 115/72 96 05/28/21 03:30 36.4 C L 81 16 105/66 96 05/27/21 23:10 36.3 C L 80 18 123/85 99 05/27/21 19:45 36.7 C 80 18 121/83 100 Pain Intensity Medial Abdomen: Pain Intensity: 7 Transfer of Care Handoff Completed per policy Notes Mental Status: alert / awake / arousable Patient Amnestic to Procedure: Yes Nausea / Vomiting: adequately controlled Pain: adequately controlled Airway Patency, RR, SpO2: stable & adequate BP & HR: stable & adequate Hydration State: stable & adequate Anesthetic Complications: no major complications apparent
[2021-05-28] MEDS ORDERED: POLYETHYLENE (MIRALAX) 17 GM PACK PO ONE (19:00)
[2021-05-28] MEDS: CITALOPRAM 20 MG TAB PO SCH (20:39)
--- NOTE | 2021-05-28 22:00 | Hospitalist Progress Note ---
Date of Service May 28, 2021 Assessment & Plan (1) Constipation: Plan: 3 weeks since last BM left sided abdominal pain, nausea vomiting CT a/p shows severe constipation no response to milk molasses enema and soap suds enema GoLytely prep on 05/27, produced some liquid stools but nothing solid colonoscopy on 05/[address] Michael, very hard fibrous stool, tried to break up but not much success colon wall with some ulceration, signs of possible ischemia from fecal load for weeks will repeat GoLytely prep, 16 doses, tomorrow at 6am see if she can move some solid stool continue Cipro/Flagyl continue to hold Suboxone in setting of constipation did not respond to a dose of Relistor (2) Stercoral colitis: Plan: cipro/flagyl IV IV fluids no fever, WBC normal, monitor closely colonoscopy today with some ulcers in colon wall, only small portion could be visualized Admission and Anticipated Discharge Date Admission Date: May 27, 2021 Subjective patient feeling better after bowel prep, had some liquid stools, nothing solid less distension, no nausea, tolerating clear liquids colonoscopy this evening, discussed with Dr. Michael very hard fibrous stool in left colon, lots of stool, not seeing any peristalsis during procedure has some ulcers, potential signs of colonic ischemia on direct visualization he recommends another bowel prep to see if we can get stool to pass concerned that she might not pass stool Review of Systems Review of Systems: All systems reviewed & are unremarkable except as noted in Subjective Constitutional: no fever, no chills, no fatigue and no weakness Respiratory: no cough and no dyspnea Cardiovascular: no chest pain and no edema Gastrointestinal: + abdominal pain (left sided), + bloating, + early satiety and + diarrhea/loose stools (two liquid stools, nothing solid); no vomiting and no hematemesis Physical Exam Constitutional: WD/WN, vitals as above no acute distress Eyes: PERRL, conjunctivae normal, anicteric sclerae ENMT: external ear and nose normal, oropharynx normal Neck: trachea midline, no thyromegaly Respiratory: normal respiratory effort, lungs clear to auscultation Cardiovascular: RRR, no murmur, no edema Gastrointestinal (Abdomen): Inspection/Auscultation: abdomen normal to inspection and normal bowel sounds; abdomen not distended Percussion/Palpation: + abdomen tender (left side), abdomen soft and + dullness to percussion (left sided) Musculoskeletal: no cyanosis or clubbing, extremities motor strength 5/5 Skin: no rashes, warm and dry Neurologic: patellar DTR's 2+ bilat, sensation intact and PERRL, EOMI, accommodation nl, no face palsy, no dysarthria Psychiatric: A+Ox3, euthymic affect Lymphatic: no cervical or axillary lymphadenopathy Results & Data Results & Data ([facility]) Vital Signs (Past 12 Hours) Vital Signs Temp Pulse Pulse Resp BP Pulse Ox 05/28/21 19:05 36.3 C L 74 16 129/90 99 05/28/21 18:50 71 16 129/92 100 05/28/21 18:35 72 16 125/94 100 05/28/21 18:20 78 16 138/91 100 05/28/21 15:39 36.9 C 88 16 111/72 99 05/28/21 15:22 36.7 C 78 16 135/87 97 05/28/21 11:44 36.6 C 82 16 112/71 96 Medications Administered Current Inpatient Medications Citalopram Hydrobromide (Citalopram 20 Mg Tab) 20 mg PO QPM [facility] Stop: 06/26/21 20:59 Last Admin: 05/28/21 20:39 Dose: 20 mg Documented by: Enoxaparin Sodium (Enoxaparin Inj 40 Mg/0.4 Ml Syr) 40 mg SQ Q24H [facility] Stop: 06/26/21 10:59 Last Admin: 05/28/21 11:26 Dose: Not Given Documented by: Lactated Ringer's (Lr) 1,000 mls @ 80 mls/hr IV .[id number] [facility] Stop: 06/26/21 10:39 Last Infusion: 05/28/21 20:23 Dose: 80 mls/hr Documented by: Ciprofloxacin (Cipro / D5w) 400 mg in 200 mls @ 100 mls/hr IV Q12H [facility] Stop: 06/06/21 10:59 Last Infusion: 05/28/21 13:25 Dose: Infused Documented by: Metronidazole (Flagyl) 500 mg in 100 mls @ 100 mls/hr IV Q8H [facility] Stop: 06/06/21 10:59 Last Infusion: 05/28/21 20:23 Dose: Infused Documented by: Ondansetron HCl (Ondansetron Inj 2 Mg/Ml 2 Ml Vial) 4 mg IV Q6H PRN PRN Reason: Nausea Stop: 06/26/21 10:39 Polyethylene Glycol (Polyethylene (Miralax) 17 Gm Pack) 17 gm PO Q4 [facility] Stop: 06/26/21 11:59 Last Admin: 05/27/21 12:49 Dose: Not Given Documented by: Polyethylene Glycol/Electrolytes (Lavage Solution 4000ml) 16 dose PO TODAY@06 [facility] Stop: 05/29/21 06:01 PG Care Time/CCT Total # of Minutes Spent Total Time Spent with Patient: Total time spent is greater than 50% in coordination of care (as documented) at patient's floor/unit and/or counseling patient: Coding Level of Care Code 48699 Subseq Hosp Care Lvl 2 Diagnoses Constipation K59.00 Stercoral colitis K52.89
[2021-05-29] MEDS ORDERED: Nursing to Pharmacy Communication SCH (01:15)
[2021-05-29] MEDS: metroNIDAZOLE 500 MG/100 ML BAG IV SCH ×3 (02:26→18:07)
[2021-05-29] MEDS: LAVAGE SOLUTION 4000ML PO SCH ×5 (05:37→19:12)
[2021-05-29] MEDS ORDERED: SOD PHOSPHATE/SOD BIPHOSPHATE ENEMA 132 ML BTL PR STA (09:16)
--- NOTE | 2021-05-29 09:20 | Hospitalist Progress Note ---
Date of Service May 29, 2021 Assessment & Plan (1) Constipation: Plan: 3 weeks since last BM left sided abdominal pain, nausea vomiting CT a/p shows severe constipation can palpate hard stool in left colon GoLytely prep on 05/27, produced some liquid stools but nothing solid colonoscopy on 05/[address] Michael, very hard fibrous stool, tried to break up but not much success colon wall with some ulceration, signs of possible ischemia from fecal load for weeks will repeat GoLytely prep, 16 doses, today, she is having a hard time drinking the prep, making her feel worse encouraged her to keep trying because we need to get that stool out give Relistor SC today try an enema to trigger some peristalsis continue Cipro/Flagyl continue to hold Suboxone in setting of constipation consider surgery consultation to follow along if we cannot get her to move bowels (2) Stercoral colitis: Plan: cipro/flagyl IV IV fluids no fever, WBC normal, monitor closely colonoscopy 05/28 with some ulcers in colon wall, only small portion could be visualized Admission and Anticipated Discharge Date Admission Date: May 28, 2021 Subjective patient not feeling very well this morning, feeling bloated, nauseated, cannot drink the GoLytely prep discussed with her that the stool is very hard, not moving, need to get it out and laxatives are probably best option, so she needs to drink them if she can will try another dose of Relistor and an enema no fever, no chest pain, no dyspnea, no cough, just c/o left sided abdominal pain, constipation, nausea Review of Systems Review of Systems: All systems reviewed & are unremarkable except as noted in Subjective Physical Exam Constitutional: WD/WN, vitals as above no acute distress Eyes: PERRL, conjunctivae normal, anicteric sclerae ENMT: external ear and nose normal, oropharynx normal Neck: trachea midline, no thyromegaly Respiratory: normal respiratory effort, lungs clear to auscultation Cardiovascular: RRR, no murmur, no edema Gastrointestinal (Abdomen): Inspection/Auscultation: abdomen normal to inspection and normal bowel sounds; abdomen not distended Percussion/Palpation: + abdomen tender (left side, can palpate hard stool in left colon), abdomen soft and + dullness to percussion (left sided) Musculoskeletal: no cyanosis or clubbing, extremities motor strength 5/5 Skin: no rashes, warm and dry Neurologic: patellar DTR's 2+ bilat, sensation intact and PERRL, EOMI, accommodation nl, no face palsy, no dysarthria Psychiatric: A+Ox3, euthymic affect Lymphatic: no cervical or axillary lymphadenopathy Results & Data Results & Data ([facility]) Vital Signs (Past 12 Hours) Vital Signs Temp Pulse Resp BP Pulse Ox 05/29/21 07:34 36.8 C 86 18 110/68 96 05/28/21 22:40 36.6 C 75 18 132/84 100 Medications Administered Current Inpatient Medications Citalopram Hydrobromide (Citalopram 20 Mg Tab) 20 mg PO QPM [facility] Stop: 06/26/21 20:59 Last Admin: 05/28/21 20:39 Dose: 20 mg Documented by: Enoxaparin Sodium (Enoxaparin Inj 40 Mg/0.4 Ml Syr) 40 mg SQ Q24H [facility] Stop: 06/26/21 10:59 Last Admin: 05/28/21 11:26 Dose: Not Given Documented by: Lactated Ringer's (Lr) 1,000 mls @ 80 mls/hr IV .[id number] [facility] Stop: 06/26/21 10:39 Last Admin: 05/28/21 23:06 Dose: 80 mls/hr Documented by: Ciprofloxacin (Cipro / D5w) 400 mg in 200 mls @ 100 mls/hr IV Q12H [facility] Stop: 06/06/21 10:59 Last Infusion: 05/29/21 01:15 Dose: Infused Documented by: Metronidazole (Flagyl) 500 mg in 100 mls @ 100 mls/hr IV Q8H [facility] Stop: 06/06/21 10:59 Last Infusion: 05/29/21 03:51 Dose: Infused Documented by: Methylnaltrexone Colome (Methylnaltrexone Colome 12 Mg/0.6 Ml Vial) 12 mg SQ Q48H [facility] Stop: 06/28/21 09:59 Ondansetron HCl (Ondansetron Inj 2 Mg/Ml 2 Ml Vial) 4 mg IV Q6H PRN PRN Reason: Nausea Stop: 06/26/21 10:39 Last Admin: 05/29/21 01:07 Dose: 4 mg Documented by: Polyethylene Glycol (Polyethylene (Miralax) 17 Gm Pack) 17 gm PO Q4 [facility] Stop: 06/26/21 11:59 Last Admin: 05/27/21 12:49 Dose: Not Given Documented by: PG Care Time/CCT Total # of Minutes Spent Total Time Spent with Patient: Total time spent is greater than 50% in coordination of care (as documented) at patient's floor/unit and/or counseling patient: Coding Level of Care Code 05869 Subseq Hosp Care Lvl 2 Diagnoses Constipation K59.00 Stercoral colitis K52.89
[2021-05-29] MEDS ORDERED: METHYLNALTREXONE BROMIDE 12 MG/0.6 ML VIAL SQ SCH (10:00)
--- NOTE | 2021-05-29 10:51 | Gastroenterology Progress Note ---
Date of Service May 29, 2021 Assessment & Plan (1) Constipation: (2) Stercoral colitis: (3) Abnormal CT scan, colon: Plan: Persistent sigmoid fecal impaction with associated stercoral colitis. * Continue clear liquid diet. * Agree with 12 mg Relistor SQ x1 dose now. * Continue MiraLAX q 4 hours until resolution of impaction. * Encouraged ambulation to improve GI motility. * Rest per primary team. Thank you for allowing us to participate in the care of this patient. If you have any questions or concerns, please do not hesitate to contact us. Admission and Anticipated Discharge Date Admission Date: May 28, 2021 Supervising Physician Co-Signing Physician Notes I personally evaluated the patient and agree with the findings as documented by FLORES Tello Exam: abd: soft, nt, nd had a bowel movement this afternoon, abdominal pain is improved. check KUB in the morning. Subjective Patient is status post colonoscopy with findings of a retained sigmoid stool ball with associated inflammatory change. The procedure resulted in incomplete evacuation of retained stool and with poor visualization. She remains on clear liquids today. Relistor ordered for today. BID MiraLAX. Patient has not passed any stool this morning. Reports slightly worsened LLQ pain since the procedure. Review of Systems Constitutional: no fever and no chills Gastrointestinal: as per Subjective / HPI Physical Exam Constitutional: WD/WN, vitals as above (no acute distress) Respiratory: normal respiratory effort, lungs clear to auscultation Cardiovascular: RRR, no murmur, no edema Gastrointestinal (Abdomen): Inspection/Auscultation: abdomen normal to inspection and + hypoactive bowel sounds (LLQ); abdomen not distended Percussion/Palpation: + abdomen tender (LLQ) and abdomen soft; no guarding, abdomen not rigid and abdomen not firm Psychiatric: A+Ox3, euthymic affect Results & Data Results & Data ([facility]) Vital Signs (Past 12 Hours) Vital Signs Temp Pulse Resp BP Pulse Ox 05/29/21 07:34 36.8 C 86 18 110/68 96 PG Care Time/CCT Total # of Minutes Spent Total Time Spent with Patient: Total time spent is greater than 50% in coordination of care (as documented) at patient's floor/unit and/or counseling patient: Coding Level of Care Code 17640 Subseq Hosp Care Lvl 3 Diagnoses Constipation K59.00 Stercoral colitis K52[address] scan, colon R93.3
[2021-05-29] MEDS: LACTATED RINGER'S 1,000 ML IV SCH (11:01)
[2021-05-29] MEDS: CIPROFLOXACIN / D5W 400 MG/200 ML BAG IV SCH (12:25)
[2021-05-29] MEDS: ENOXAPARIN INJ 40 MG/0.4 ML SYR SQ SCH (12:39)
[2021-05-29] MEDS: POLYETHYLENE (MIRALAX) 17 GM PACK PO SCH ×3 (14:34→19:48)
[2021-05-29] MEDS: CITALOPRAM 20 MG TAB PO SCH (21:09)
[2021-05-30] MEDS: CIPROFLOXACIN / D5W 400 MG/200 ML BAG IV SCH (00:09)
[2021-05-30] MEDS: POLYETHYLENE (MIRALAX) 17 GM PACK PO SCH ×3 (00:21→08:18)
[2021-05-30] MEDS: LACTATED RINGER'S 1,000 ML IV SCH (01:16)
[2021-05-30] MEDS: metroNIDAZOLE 500 MG/100 ML BAG IV SCH ×2 (02:50→11:18)
[2021-05-30 07:09] LABS: Est GFR (African American) > 150.0 ml/min; Est GFR (Non-African American) 132.6 ml/min
--- NOTE | 2021-05-30 10:14 | Gastroenterology Progress Note ---
Date of Service May 30, 2021 Assessment & Plan (1) Constipation: (2) Stercoral colitis: (3) Abnormal CT scan, colon: Plan: Persistent sigmoid fecal impaction with associated stercoral colitis. * Advance diet as tolerated. * Decrease MiraLAX to 17 g BID. * Stable for discharge from GI perspective. Thank you for allowing us to participate in the care of this patient. If you have any questions or concerns, please do not hesitate to contact us. Admission and Anticipated Discharge Date Admission Date: May 28, 2021 Subjective Patient reports she is feeling much better. Had a bowel movement this morning. Denies any further abdominal pain. No blood in stools. Review of Systems Constitutional: no fever and no chills Respiratory: no cough and no dyspnea Cardiovascular: no chest pain and no palpitations Gastrointestinal: as per Subjective / HPI Physical Exam Constitutional: WD/WN, vitals as above Respiratory: normal respiratory effort, lungs clear to auscultation Cardiovascular: RRR, no murmur, no edema Gastrointestinal (Abdomen): normal bowel sounds, soft, nontender, no hepatosplenomegaly Psychiatric: A+Ox3, euthymic affect Results & Data Results & Data ([facility]) Vital Signs (Past 12 Hours) Vital Signs Temp Pulse Resp BP Pulse Ox 05/30/21 06:54 36.7 C 83 16 123/77 97 05/29/21 22:54 36.6 C 83 18 118/79 96 PG Care Time/CCT Total # of Minutes Spent Total Time Spent with Patient: Total time spent is greater than 50% in coordination of care (as documented) at patient's floor/unit and/or counseling patient: Coding Level of Care Code 82819 Subseq Hosp Care Lvl 3 Diagnoses Constipation K59.00 Stercoral colitis K52[address] scan, colon R93.3
[2021-05-30] MEDS: ENOXAPARIN INJ 40 MG/0.4 ML SYR SQ SCH (11:18)
--- NOTE | 2021-05-30 12:26 | Discharge Summary ---
Date of Service May 30, 2021 Admission HPI Per Admitting Provider 31 yo female who is typically healthy, takes Celexa and Suboxone, presents with 3 weeks of constipation. She typically is regular, her bowels are not hard or difficult to pass. She did not think much of it but when she could not move her bowels this week she got worried. She developed some left sided abdominal pain, nausea and vomiting the past few days. Poor appetite. Does not feel too bloated. She can hear her bowels "rumbling." No other issues, no fever, no chest pain, no cough, no dyspnea, no rash. In the ED they tried milk and molassess enema and soap suds enema with no significant results, passed a little bit of liquid. CT abd/pelvis with significant constipation and stercoral colitis possible, could not rule out a stricture but would need colonoscopy once stool passed. Gave her Miralax in the ED. Principal Diagnosis Severe constipation Discharge Exam Constitutional WD/WN, vitals as above no acute distress Eyes PERRL, conjunctivae normal, anicteric sclerae ENMT external ear and nose normal, oropharynx normal Neck trachea midline, no thyromegaly Respiratory normal respiratory effort, lungs clear to auscultation Cardiovascular RRR, no murmur, no edema Gastrointestinal (Abdomen) Inspection/Auscultation: abdomen normal to inspection and normal bowel sounds; abdomen not distended Percussion/Palpation: abdomen soft; abdomen nontender Musculoskeletal no cyanosis or clubbing, extremities motor strength 5/5 Skin no rashes, warm and dry Neurologic patellar DTR's 2+ bilat, sensation intact and PERRL, EOMI, accommodation nl, no face palsy, no dysarthria Psychiatric A+Ox3, euthymic affect Lymphatic no cervical or axillary lymphadenopathy Discharge Data Allergies Allergy/AdvReac Type Severity Reaction Status Date / Time No Known Allergies Verified 05/26/21 23:52 Consultations 05/27/21 07:27 ED Decision to Admit Stat 05/27/21 10:40 Consult Gastroenterology Routine Procedures Performed Operation Date: 05/28/21 16:30 Actual Procedures p Colonoscopy Foreign Body Removal(Not Applicable) - Bridger Funes Case, DO Ordered Studies 05/27/21 03:07 CT abd pelvis oral and IV con Urgent Hospital Course (1) Constipation: 3 weeks since last BM when admitted left sided abdominal pain, nausea vomiting CT a/p shows severe constipation can palpate hard stool in left colon GoLytely prep on 05/27, produced some liquid stools but nothing solid colonoscopy on 05/[address] Michael, very hard fibrous stool, tried to break up but not much success colon wall with some ulceration, signs of possible ischemia from fecal load for weeks repeat GoLytely prep on 05/29 and Miralax Q4 repeated Relistor SC on 05/29 try an enema to trigger some peristalsis continue Cipro/Flagyl continue to hold Suboxone in setting of constipation multiple solid BM on 05/29 and 05/30, feeling much better, hungry will discharge home take Miralax BID and stool softener instructions provided for keeping bowels regular and preventing this from happening again follow up with PCP, can follow up with GI if needed, Shyla TANNER recommend she stop taking Suboxone if she does not need it, off of it for three days while here (2) Stercoral colitis: cipro/flagyl IV IV fluids no fever, WBC normal, monitor closely colonoscopy 05/28 with some ulcers in colon wall, only small portion could be visualized will continue Cipro/Flagyl PO for 5 more days on discharge Total Time Total Time Spent Total Time Spent (In Minutes): 31 Total Time Includes: Examination of the Patient, Discharge Planning, Medication Reconciliation and Communication With Other Providers (Shyla Mckeon) Discharge Plan Discharge Items Patient Disposition: Home - Self-Care Reason For Visit: severe constipation Discharge Diagnosis: Severe constipation Condition on Discharge: Good Goals: stay well hydrated take Miralax twice a day to keep bowels moving try to wean off suboxone Activity: Resume your previous activity Non-emergency contact: Primary Care Provider Call non-emergency contact if: you have any medication questions Follow-up/Referrals: Syeda Queen CRNP [Primary Care Provider] - (one week) Diet: Low Fiber Addtl Attending Provider Instructions: Medications: - MIRALAX: take twice a day to keep bowels regular - CIPRO and FLAGYL: take for 5 more days, antibiotics to cover colitis Severe constipation, dense fibrous stool in left colon need to continue on Miralax twice a day could be due to narcotics with Suboxone, recommend trying to wean off, discuss with your provider stay well hydrated, drink at least 2 liters of fluids a day stay on low fiber diet for the next 1-2 weeks but once moving regularly then you want to eat healthy amount of fiber stay active, exercise helps keep you regular if you don't move bowels for 2-3 days then can try a suppository or increase Miralax to 3 times a day if your stools are very loose and always watery then you can back off the Miralax Pending Studies at Discharge: No Stand-Alone Forms: My [facility], Smoking Cessation Medications and DC Order Prescriptions: New polyethylene glycol 3350 [Miralax] 17 gram Powder In Packet 17 g PO BID 30 Days Qty: 100 RF: 0 ciprofloxacin HCl 500 mg tablet 500 mg PO BID Qty: 10 RF: 0 metronidazole [Flagyl] 500 mg tablet 500 mg PO Q8H 5 Days Qty: 15 RF: 0 Continued citalopram [Celexa] 20 mg Tablet 20 mg PO QPM RF: 0 buprenorphine HCl 8 mg tablet, sublingual SUBLINGUAL RF: 0 Discharge Orders: Discharge Order (Routine); Ordered 05/30/21 Ordered By: Agapito Arroyo Admission Data Admit Date/Time: 05/28/21 22:00 Attending Provider: Agapito Arroyo Admit Provider: Agapito Arroyo Primary Care Provider: Syeda Queen Other Providers: Bridger Michael ; Agapito Arroyo Other Interventions: Discharge Summary Assessment (RN) Last Done: 05/28/21 18:45 Coding Level of Care Code D/C DAY MANAGEMENT >30 MINS Diagnoses Constipation K59.00 Stercoral colitis K52.89
[2021-05-30] MEDS ORDERED: POLYETHYLENE (MIRALAX) 17 GM PACK PO SCH (21:00)
== END 2021-05-30 13:52 | disposition home or self-care (01) ==
LOC: 4N 22:05 → ED 22:05 → 4N 05-27 09:45 → 3N 05-28 22:48